=== PATIENT | female | born 1950 | race Caucasian/White ===

== ENCOUNTER 2019-09-03 08:21 | Day surgery (SDC) | payer MEDICARE, OTHER ==
[~2019-09-03] VITALS: Ht 162.6 cm; Wt 64.5 kg
[~2019-09-03 08:21] MED LIST: ERGO400 PO; EUTHYROX50 MCG PO; MULTIVITAMINS1 EAC3 PO; Norco 5-325 Ta1 EACH PO; OMEP20ER PO
== END 2019-09-03 10:23 | disposition home or self-care (01) ==
LOC: ORSCSDS 08:21
PROVIDERS: Internal Medicine Gastroenterology
PROC: 0DB58ZX Excision of Esophagus, Via Natural or Artificial Opening Endoscopic, Diagnostic (ICD-10-PCS; principal; 2019-09-03 09:45)
DX: K22.70 Barrett's esophagus without dysplasia (principal); K21.9 Gastro-esophageal reflux disease without esophagitis; Z86.711 Personal history of pulmonary embolism; K44.9 Diaphragmatic hernia without obstruction or gangrene; E03.9 Hypothyroidism, unspecified; Z79.899 Other long term (current) drug therapy
CPT/HCPCS: 88305; J2704; J7120

== ENCOUNTER 2021-09-29 07:00 | Day surgery (SDC) | payer MEDICARE, OTHER ==
[~2021-09-29] VITALS: Ht 162.6 cm; Wt 65.5 kg
== END 2021-09-29 09:44 | disposition home or self-care (01) ==
LOC: ORSCSDS 07:00
PROVIDERS: Ophthalmology
PROC: 08RJ3JZ Replacement of Right Lens with Synthetic Substitute, Percutaneous Approach (ICD-10-PCS; principal; 2021-09-29 08:30)
DX: H25.11 Age-related nuclear cataract, right eye (principal); I47.1 Supraventricular tachycardia; Z79.899 Other long term (current) drug therapy
CPT/HCPCS: J2001; J2250; J3010; J3301; J7040; V2632

== ENCOUNTER 2021-11-21 10:57 | Emergency (ER) | payer MEDICARE, OTHER ==
[~2021-11-21] VITALS: Ht 162.6 cm; Wt 63.5 kg
[2021-11-21 11:28] LABS: Hemoglobin 12.3 g/dL (11.5-16.0); Mean Corpuscular HGB 26.1 pg (26.0-34.0); Mean Corpuscular HGB Conc 31.5 g/dL (31.5-36.5); Mean Corpuscular Volume 83 fL (80-100); Mean Platelet Volume 9.9 fL (9.1-12.4); Platelet Count 269 K/mm3 (150-400); RDW Coefficient Variation 13.9 % (11.7-14.2); RDW Standard Deviation 42.1 fL (35.1-46.3); Red Blood Cell Count 4.72 M/mm3 (3.80-5.20); White Blood Cell Count 7.48 K/mm3 (4.00-11.30)
[2021-11-21 11:57] LABS: Albumin, Blood 3.6 g/dL (3.4-5.0); Albumin/Globulin Ratio 1.1 (0.8-1.8); Bilirubin, Total 0.3 mg/dL (0.1-1.0); Bun/Creatinine Ratio 26.5 (12.0-20.0); Calcium, Blood 9.9 mg/dL (8.5-10.1); Creatinine, Blood 0.64 mg/dL (0.40-1.00); Globulin, Blood 3.3 g/dL (2.2-4.0); Total Protein, Blood 6.9 g/dL (6.4-8.2)
[2021-11-21 12:35] LABS: BASOPHILS ABSOLUTE MAN 0.07 K/mm3 (0.00-0.23); BASOPHILS PERCENT MAN 1 % (0-2); EOSINOPHILS ABSOLUTE MAN 0.07 K/mm3 (0.00-0.68); EOSINOPHILS PERCENT MAN 1 % (0-6); LYMPHOCYTES ABSOLUTE MAN 3.74 K/mm3 (0.84-5.20); LYMPHOCYTES PERCENT MAN 50 % (21-46); MONOCYTES ABSOLUTE MAN 0.37 K/mm3 (0.16-1.47); MONOCYTES PERCENT MAN 5 % (4-13); NEUTROPHILS ABSOLUTE MAN 3.21 K/mm3 (1.96-9.15); SEG NEUTROPHILS PERCENT MAN 43 % (41-73); TOTAL CELLS COUNTED 100
[2021-11-21] MEDS ORDERED: Sucralfate1 GM PO (13:22)
== END 2021-11-21 13:41 | disposition home or self-care (01) ==
LOC: ER 10:57
PROVIDERS: Emergency Medicine
DX: K21.00 Gastro-esophageal reflux disease with esophagitis, without bleeding (principal); Z79.899 Other long term (current) drug therapy
CPT/HCPCS: 36415; 71046; 80053; 83690; 84484; 85025; 93005; 93010; 99284-25

== ENCOUNTER 2022-05-24 09:06 | Day surgery (SDC) | payer MEDICARE, OTHER ==
[~2022-05-24] VITALS: Ht 162.6 cm; Wt 61.8 kg
[~2022-05-24 09:06] MED LIST changes: +Sucralfate1 GM PO
== END 2022-05-24 13:00 | disposition home or self-care (01) ==
LOC: ORSCSDS 09:06 → ORD 07-09 08:00
PROVIDERS: Internal Medicine Gastroenterology
PROC: 0DB98ZX Excision of Duodenum, Via Natural or Artificial Opening Endoscopic, Diagnostic (ICD-10-PCS; principal; 2022-05-24 11:45)
PROC: 0DB58ZX Excision of Esophagus, Via Natural or Artificial Opening Endoscopic, Diagnostic (ICD-10-PCS; principal; 2022-05-24 11:45)
PROC: 0DB68ZX Excision of Stomach, Via Natural or Artificial Opening Endoscopic, Diagnostic (ICD-10-PCS; principal; 2022-05-24 11:45)
DX: R10.13 Epigastric pain (principal); K21.00 Gastro-esophageal reflux disease with esophagitis, without bleeding; K22.70 Barrett's esophagus without dysplasia; K29.70 Gastritis, unspecified, without bleeding; K44.9 Diaphragmatic hernia without obstruction or gangrene; R06.02 Shortness of breath; I47.1 Supraventricular tachycardia; E03.9 Hypothyroidism, unspecified; Z79.899 Other long term (current) drug therapy
CPT/HCPCS: 88305; 88312; 88342; J2704; J7120

== ENCOUNTER 2022-07-30 12:38 | Day surgery (SDC) | payer MEDICARE, OTHER ==
[~2022-07-30] VITALS: Ht 162.6 cm; Wt 61.7 kg
[2022-07-30] MEDS ORDERED: LORA1SY (13:35)
[2022-07-30] MEDS ORDERED: MELA3 (13:36)
[2022-07-30 15:58] VITALS: BP 106/65
== END 2022-07-30 15:50 | disposition home or self-care (01) ==
LOC: ORSCSDS 12:38
PROVIDERS: Internal Medicine Gastroenterology
PROC: 0DB58ZX Excision of Esophagus, Via Natural or Artificial Opening Endoscopic, Diagnostic (ICD-10-PCS; principal; 2022-07-30 14:15)
DX: K22.70 Barrett's esophagus without dysplasia (principal); K21.00 Gastro-esophageal reflux disease with esophagitis, without bleeding; R10.13 Epigastric pain; I47.1 Supraventricular tachycardia; Z86.711 Personal history of pulmonary embolism; Z79.899 Other long term (current) drug therapy
CPT/HCPCS: 88305; 88312; J2001; J2704; J7120

== ENCOUNTER 2023-02-11 11:58 | Inpatient (IN) | payer MEDICARE, OTHER ==
[2023-02-11] VITALS (15 sets, daily range): BP systolic 145–169; BP diastolic 70–90
[~2023-02-11] VITALS: Ht 162.6 cm; Wt 62.8 kg
[~2023-02-11 11:58] MED LIST changes: +FAMO40 PO; +LACT PO; +LORA1SY PO; +MELA3 PO; +MULVITA PO; +PANT40 PO; +SUCR1 PO; +TURMERIC500 M2 PO
[2023-02-12 00:34] VITALS: BP 145/76
[2023-02-12 04:06] VITALS: BP 145/77
[2023-02-12 05:05] LABS: Hematocrit 37.6 % (33.0-51.0); Hemoglobin 11.8 g/dL (11.5-16.0); Mean Corpuscular HGB 25.4 pg (26.0-34.0); Mean Corpuscular HGB Conc 31.4 g/dL (31.5-36.5); Mean Corpuscular Volume 81 fL (80-100); Mean Platelet Volume 9.1 fL (9.1-12.4); Platelet Count 273 K/mm3 (150-400); RDW Standard Deviation 43.8 fL (35.1-46.3); Red Blood Cell Count 4.64 M/mm3 (3.80-5.20); White Blood Cell Count 8.56 K/mm3 (4.00-11.30)
[2023-02-12 05:44] LABS: Bun/Creatinine Ratio 24.7 (12.0-20.0); Calcium, Blood 9.2 mg/dL (8.5-10.1); Creatinine, Blood 0.65 mg/dL (0.40-1.00); Magnesium, Blood 2.3 mg/dL (1.6-2.4); Potassium, Blood 4.4 mmol/L (3.5-5.5)
--- NOTE | 2023-02-12 06:46 | NUR ---
SHIFT SUMMARY POD #1 ROMAINE FUNDOPLICATION PT IS A&O X4, ON RA, VSS, LAP SITES REMAIN C/D/I, MILD DISTENSION, BOWEL SOUNDS ACTIVE X4, MILD NAUSEA REPORTED, PT ENC TO DECREASE PO INTAKE TO SM SIPS/ICE CHIPS, NAUSEA IMPROVED, PAIN MANAGED W IV TORADOL, INCENTIVE SPIROMETER INITIATED, AMBULATED IN HALLS X3, VOIDING WNL, LR INFUSING @75 ML/HR, SITTING UP IN CHAIR THIS AM, REPORT GIVEN TO NENA DILLARD, CALL LIGHT IN REACH
[2023-02-12 07:38] VITALS: BP 129/75
[2023-02-12] MEDS ORDERED: ONDA4 PO (11:05)
[2023-02-12] MEDS ORDERED: Norco 5-325 Ta1 EACH PO (11:07)
[2023-02-12 14:46] VITALS: BP 139/68
--- NOTE | 2023-02-12 17:10 | NUR ---
SHIFT SUMMARY: PT REMAINS ALERT AND ORIENTED X4, ABLE TO FOLLOW COMMANDS AND MAKE NEEDS KNOWN. BP AND HR STABLE. AFEBRILE. SPO2 >98% ON ROOM AIR, RESPIRATIONS EVEN AND UNLABORED. PULSES STRONG AND EQUAL THROUGHOUT. PT POST OP X1 DAY ONE FOR PARAESOPHAGEAL HERNIA REPAIR. MEDICATED FOR PAIN/NAUSEA PER EMAR. MD AT BEDSIDE THIS AM, DISCHARGE ORDERS PLACED. PT REQUESTING TO STAY ADDITIONAL DAY DUE TO INTERMITTENT NAUSEA, PLAN FOR D/C IN AM. TOLERATING FULL LIQUID DIET WELL. AMBULATING IND IN ROOM AND HALLWAYS. LR GTT @75ML IN R. FOREARM. AT BEDSIDE THROUGHOUT THE SHIFT, UPDATED ON PT PLAN OF CARE. PT CURRENTLY SITTING ON SIDE OF BED WATCHING TELEVISION. BED IN LOW, CALL LIGHT IN REACH, WILL REPORT TO ONCOMING RN.
[2023-02-12 19:57] VITALS: BP 131/74
[2023-02-13 02:40] VITALS: BP 131/75
[2023-02-13 07:09] VITALS: BP 155/77
--- NOTE | 2023-02-13 07:50 | NUR ---
SHIFT SUMMARY NOC. PT A/O X4. PT LAP SITES ARE C/D/I. PT REPORTED NAUSEA AND HEARTBURN. PT MEDICATED WITH REGLAN AND ZOFRAN WITH SOME RELIEF. PT'S PAIN CONTROLLED WITH LIQUID TYLENOL. PT RESTED WITH EYES CLOSED AND CALL LIGHT IN REACH.
[2023-02-13 15:16] VITALS: BP 159/82
[2023-02-13 17:17] LABS: BASOPHILS ABSOLUTE AUTO 0.04 K/mm3 (0.00-0.23); BASOPHILS PERCENT AUTO 0 % (0-2); EOSINOPHILS ABSOLUTE AUTO 0.01 K/mm3 (0.00-0.68); EOSINOPHILS PERCENT AUTO 0 % (0-6); Hemoglobin 13.4 g/dL (11.5-16.0); IMMATURE GRAN ABSOLUTE AUTO 0.02 K/mm3 (0.00-0.10); IMMATURE GRAN PERCENT AUTO 0 % (0-1); LYMPHOCYTES ABSOLUTE AUTO 1.95 K/mm3 (0.84-5.20); LYMPHOCYTES PERCENT AUTO 21 % (21-46); MONOCYTES ABSOLUTE AUTO 0.41 K/mm3 (0.16-1.47); MONOCYTES PERCENT AUTO 4 % (4-13); Mean Corpuscular HGB 25.8 pg (26.0-34.0); Mean Corpuscular HGB Conc 31.9 g/dL (31.5-36.5); Mean Corpuscular Volume 81 fL (80-100); NEUTROPHILS ABSOLUTE AUTO 7.08 K/mm3 (1.96-9.15); NEUTROPHILS PERCENT AUTO 75 % (41-73); Platelet Count 291 K/mm3 (150-400); RDW Coefficient Variation 14.9 % (11.7-14.2); RDW Standard Deviation 43.6 fL (35.1-46.3); White Blood Cell Count 9.51 K/mm3 (4.00-11.30)
[2023-02-13 17:39] LABS: Magnesium, Blood 1.9 mg/dL (1.6-2.4)
[2023-02-13 17:41] LABS: Bun/Creatinine Ratio 11.4 (12.0-20.0); Creatinine, Blood 0.62 mg/dL (0.40-1.00); Thyroid Stimulating Hormone 0.692 uIU/mL (0.360-4.800)
[2023-02-13 19:08] VITALS: BP 146/69
--- NOTE | 2023-02-13 19:13 | NUR ---
SHIFT SUMMARY POD2 ESOPHAGEAL HERNIA REPAIR WITH TOUPE FUNDUPLOCATION, A/OX4, VSS, TOLERATING SIPS/CHIPS BUT IS HAVING MINIMAL PO INTAKE, BARIUM SWALLOW STUDY PLANNED FOR TOMORROW AND SHE IS AWARE OF THE PLAN FOR IT. SHE HAD AN EVENT WHERE SHE FELT LIKE SHE WAS GOING INTO SVT, OBTAINED A SET OF VITALS, CONTACTED SURGEON, ORDER FOR HOSPITALIST CONSULT AND EKG GIVEN, EKG OBTAINED SHOWING AFIB c RVR, 5MG LOPRESSOR STAT GIVEN, PT REPORTS NEVER HAVING AFIB PRIOR TO THIS, ADDITIONAL LABS/ORDERS PER HOSPITALIST IN PLACE. SHE IS CURRENTLY NSR @ 74 PER TELEMETRY. NO OTHER EVENTS THIS SHIFT, CALL LIGHT IN REACH
[2023-02-14 04:22] VITALS: BP 136/67
--- NOTE | 2023-02-14 05:26 | NUR ---
SHIFT SUMMARY POD3 FUNDIPLICATION, INCISIONS ARE C/D/I. VSS, SR 89. PT SLEPT ON AND OFF T/O THE NIGHT. TOLLERATED MINIMAL PO INTAKE, NO N/V NOTED. PT AMBULATING INDEPENDENTLY, VOIDING W/O DIFFICULTY. NO BM NOTED, PT REPORTS PASSING MINIMAL FLATTUS. HAS NOT REQUIRED ANY PAIN MEDICATION. NO ACUTE EVENTS NOTED T/O THE NIGHT. PLAN TO ENCOURAGE PT TO TRY FULL LIQUID DIET TODAY
[2023-02-14 07:32] VITALS: BP 123/76
[2023-02-14 13:29] VITALS: BP 116/61
--- NOTE | 2023-02-14 13:55 | NUR ---
SPOKE WITH JAMES SMITH ([employer]) REGARDING HR AND RYTHM. JAMES REPORTED PT WAS IN AFIB FROM 1308 TO 1319. PT HAD BEEN UP AMBULATING AT THAT TIME. HE ALSO REPORTED 6 EPISODES OF AFIB SINCE 0500, LASTING 10-15 MINUTES. HE REPORTED EPISODES AT 0527, 0648, 0740, 0824, 1022, AND 1308. VSS AND PT ASYMPTOMATIC. DR. ESPOSITO NOTIFIED OF EPISODES OF AFIB. SHE REQUESTED TO KNOW IF THE HR HAD REMAINED UNDER 100 D[address] THOSE EP[address]. CALL PLACE TO TELE MONITOR, SPOKE WITH WILLIE DILLARD REGARDING EPISODES OF AFIB LISTED. SHE REVIEWED THE EPISODES AND STATED IT APPEARED THAT HR HAD STAYED BELOW 100 BUT IT APPEARED THAT [employer] MAY HAVE BEEN PRESENT AND WAS UNSURE IF THE PT WAS TRULY IN AFIB. THE EPISODES OF AFIB VS [employer] APPEARED TO COINCIDE WITH AMBULATION. PT WAS ASSISTED TO AMBULATE AND A SIMILAR RHYTHM WAS SHOWN ON MONITORS PER WILLIE DILLARD. DR. ESPOSITO NOTIFIED AND STATED OK FOR PT TO DISCHARGE HOME BUT SHE NEEDS TO FOLLOW UP WITHIN 1 WEEK WITH PCP OR CARDIOLOGY. DR. ESPOSITO STATED NO NEED FOR BLOOD THINNERS UPON DISCHARGE, THEY CAN BE MANAGED BY CARDIOLOGY OR PCP.
[2023-02-14 14:50] VITALS: BP 114/70
--- NOTE | 2023-02-14 15:51 | NUR ---
DISCHARGE PT PROVIDED WITH WRITTEN AND VERBAL DISCHARGE INSTRUCTIONS, SHE REPORTED UNDERSTANDING. PT IS NSR AT TIME OF DISCHARGE. VSS. PT TOLERATING CLEAR LIQUIDS WELL AND ADVANCING TO FULL LIQUIDS. PT AMBULATED OUT INDEPENDENTLY AT APPROXIMATELY 1515.
== END 2023-02-14 15:49 | disposition home or self-care (01) | DRG 327 ==
LOC: ORSCMMR 11:58 → SURS 19:00 → ORSCMMR 02-13 10:58 → SURS 02-13 10:59
PROVIDERS: Surgery; ADMIT Student in an Organized Health Care Education/Training Program
PROC: 0DV44ZZ Restriction of Esophagogastric Junction, Percutaneous Endoscopic Approach (ICD-10-PCS; 2023-02-11)
PROC: 8E0W4CZ Robotic Assisted Procedure of Trunk Region, Percutaneous Endoscopic Approach (ICD-10-PCS; 2023-02-11)
PROC: 0BQT4ZZ Repair Diaphragm, Percutaneous Endoscopic Approach (ICD-10-PCS; principal; 2023-02-11 14:00)
DX: K44.9 Diaphragmatic hernia without obstruction or gangrene (principal); I47.10 Supraventricular tachycardia, unspecified; K22.70 Barrett's esophagus without dysplasia; I10 Essential (primary) hypertension; K21.9 Gastro-esophageal reflux disease without esophagitis; E03.9 Hypothyroidism, unspecified; I48.0 Paroxysmal atrial fibrillation; Z86.711 Personal history of pulmonary embolism; Z79.890 Hormone replacement therapy
CPT/HCPCS: 36415; 80048; 83735; 84443; 85025; 85027; 93005; 93010; 94762; A9270; C9113; J1100; J1170; J1650; J1885; J2405; J2704; J2765; J3010; J7040; J7120

== ENCOUNTER → 2023-12-19 | Outpatient (CLI) | payer MEDICARE, OTHER ==
[~2023-12-19] MED LIST changes: +CLARITIN10 M2; +MULVITA; +ONDA4 PO
== END | disposition home or self-care (01) ==
LOC: LAB 18:46 → LAB SHORT 18:46
DX: J02.9 Acute pharyngitis, unspecified (principal)
CPT/HCPCS: 87081

== ENCOUNTER → 2024-02-22 | Outpatient (CLI) | payer MEDICARE, OTHER | LOC: LAB SHORT 14:00 → LAB 14:00 | DX: J31.2 Chronic pharyngitis (principal) | CPT/HCPCS: 87081 ==